=== PATIENT | female | born 2000 | race Caucasian/White ===

== ENCOUNTER 2020-04-23 12:05 | Outpatient (CLI) | payer BC, OTHER, SELFPAY ==
[2020-04-23 13:15] VITALS: BP 133/76; PULSE 79
[2020-04-23 13:40] LABS: Basophils Percent Auto 0.2 % (0.2-1.2); Eosinophils Absolute Auto 0.1 K/mm3 (0-0.3); Eosinophils Percent Auto 1.1 % (0-4.4); Hematocrit 32.3 % (37.0-47.0); Hemoglobin 10.5 g/dL (12.0-15.0); Immature Granulocyte Absolute 0.05 K/mm3 (0.00-0.031); Immature Granulocyte Percent A 0.4 % (0-0.5); Lymphocytes Absolute Auto 2.95 K/mm3 (0.9-3.2); Lymphocytes Percent Auto 25.8 % (18.3-44.2); Mean Corpuscular HGB Conc 32.5 g/dl (32-36); Mean Corpuscular Hemoglobin 25.6 pg (26-34); Mean Corpuscular Volume 78.8 fl (80-100); Monocytes Absolute Auto 0.9 K/mm3 (0.1-0.6); Monocytes Percent Auto 8.1 % (2.6-8.5); Neutrophils Absolute Auto 7.4 K/mm3 (1.3-6.7); Neutrophils Percent Auto 64.4 % (45.5-73.1); Platelet Count Result 321 k/mm3 (150-375); Red Cell Distribution Width 13.5 % (11.5-14.5); White Blood Count 11.4 K/mm3 (4.5-10.0)
[2020-04-23 13:45] LABS: Add Urine Microscopic? YES; Amorphous Sediment Urine Few; Appearance Urine Cloudy (Clear); Bacteria Urine 1+ /hpf; Bilirubin Urine Negative (Negative); Blood Urine Negative (Negative); Color Urine Yellow (Yellow); Glucose Urine UA Negative (Negative); Ketones Urine Negative (Negative); Leukocyte Esterase Ur 1+ LEU/UL (NEGATIVE); Mucus Urine Few /lpf; Nitrate Urine Negative (Negative); Protein Urine 1+ mg/dL (Negative); Specific Grav Ur 1.017 (1.001-1.035); Squamous Epithelial Cell Urine Many /hpf (Few); Transitional Epi Cells Urine Rare /hpf (None Seen); Urobilinogen Urine Negative mg/dL (<2.0)
[2020-04-23 13:49] LABS: Alanine Aminotransferase 10 U/L (4-35); Albumin Level 3.4 g/dL (3.7-5.6); Alkaline Phosphatase 115 U/L (45-116); Aspartate Amino Transferase 18 U/L (14-36); Bilirubin,Total 0.3 mg/dL (0.2-1.3); Blood Urea Nitrogen 7 mg/dL (8-21); Calcium 8.7 mg/dL (8.9-10.7); Carbon Dioxide 22 mmol/L (22-30); Chloride 107 mmol/L (98-107); Estimated Glomerular Filt Rate > 60; Glucose 92 mg/dL (65-105); Potassium 3.8 mmol/L (3.4-5.0); Sodium 133 mmol/L (134-143); Uric Acid 2.9 mg/dL (3.0-5.9)
[2020-04-23 13:50] LABS: Creatinine Urine 113.1 mg/dL; Total Protein Urine Random 10 mg/dL
--- NOTE | 2020-04-23 15:31 | PC.NURSE ---
Upon d/c instructions, reminded about her constant headache for a week...unsure of the dose...is going to go home and check the dosage. I instructed her that she can take up to 2 exta strength tabs every 6 hours and do that for a whole day at least to see if that works. She is also hurting in her hips and back, maternity belt not helping and I suggested a massage (she was going to a chiropractor). HIP sheet given and explained/emphasized what RUQ pain was and the swelling, which she does not have. Pt will call here if the Tylenol does not work, we would call Dr Goins for alterative of flexoril or fioricet.
== END 2020-04-23 15:10 | disposition home or self-care (01) ==
PROVIDERS: PCP Pediatrics; Visit Provider Obstetrics & Gynecology
DX: O13.9 Gestational [pregnancy-induced] hypertension without significant proteinuria, unspecified trimester (principal); R51 Headache; R10.13 Epigastric pain
CPT/HCPCS: 36415; 59025; 80053; 81001; 82570; 84156; 84550; 85025

== ENCOUNTER 2020-05-21 13:10 | Observation (INO) | payer BC, OTHER, SELFPAY ==
--- NOTE | ~2020-05-21 | US_ITS ---
EXAMINATION: US OB BPP wo non-stress DATE: 05/21/2020 14:59 INDICATION: Diabetes, third trimester TECHNIQUE: Real-time pelvic ultrasound was performed. The interpreting radiologist was not present fo r the study. COMPARISON: None. FINDINGS: There is a single living fetus in vertex presentation. The placenta is anterior. heart rate is 157 beats per minute (bpm). Biophysical profile performed by the technologist: breathing (30 sec sustained breathing in 30 minutes): 2 out of 2 movement (3 gross body movements in 30 minutes): 2 out of 2 tone (one episode of jiiqtyo-whrzqnipd-prqghmj limb movement): 2 out of 2 Amniotic fluid pocket (2 cm): 2 out of 2 Total score: 8 out of 8 IMPRESSION: 1. Single living fetus in vertex presentation. 2. Biophysical profile 8 out of 8. Reviewed, dictated and finalized at location A.
[2020-05-21 13:31] VITALS: BP 142/93; PULSE 99
[2020-05-21 13:45] VITALS: BP 129/83; PULSE 75
[2020-05-21 14:00] VITALS: BP 125/80; PULSE 89
[2020-05-21 14:15] VITALS: BP 133/83; PULSE 98
--- NOTE | 2020-06-16 11:56 | PM.OBTRLD ---
OB - Triage/Final Diagnosis Visit Information Date of evaluation: 05/21/20 Final Diagnosis (1) False labor: Code(s): O47.9 - False labor, unspecified Status: Acute
== END 2020-05-21 15:00 | disposition home or self-care (01) ==
PROVIDERS: Admitting Provider Obstetrics & Gynecology; PCP Pediatrics; Visit Provider Obstetrics & Gynecology
DX: O47.1 False labor at or after 37 completed weeks of gestation (principal); Z3A.37 37 weeks gestation of pregnancy
CPT/HCPCS: 76819; G0378; G0379

== ENCOUNTER 2020-05-26 10:30 | Inpatient (IN) | payer BC, OTHER, SELFPAY ==
[2020-05-26] VITALS (51 sets, daily range): BP systolic 123–182; BP diastolic 71–104; PULSE 64–128; RESP 16; TEMP 36.9–37.1; O2SAT 84–100; BMI 31.5
[2020-05-26 12:38] LABS: Basophils Percent Auto 0.3 % (0.2-1.2); Eosinophils Absolute Auto 0.2 K/mm3 (0-0.3); Eosinophils Percent Auto 1.4 % (0-4.4); Hematocrit 34.2 % (37.0-47.0); Hemoglobin 10.9 g/dL (12.0-15.0); Immature Granulocyte Absolute 0.08 K/mm3 (0.00-0.031); Immature Granulocyte Percent A 0.7 % (0-0.5); Lymphocytes Absolute Auto 2.95 K/mm3 (0.9-3.2); Lymphocytes Percent Auto 27.4 % (18.3-44.2); Mean Corpuscular HGB Conc 31.9 g/dl (32-36); Mean Corpuscular Hemoglobin 24.7 pg (26-34); Mean Corpuscular Volume 77.6 fl (80-100); Mean Platelet Volume 12.7 fl (7.4-10.4); Monocytes Absolute Auto 0.7 K/mm3 (0.1-0.6); Monocytes Percent Auto 6.3 % (2.6-8.5); Neutrophils Absolute Auto 6.9 K/mm3 (1.3-6.7); Neutrophils Percent Auto 63.9 % (45.5-73.1); Platelet Count Result 281 k/mm3 (150-375); Red Blood Count 4.41 M/mm3 (4.2-5.4); Red Cell Distribution Width 14.7 % (11.5-14.5); White Blood Count 10.8 K/mm3 (4.5-10.0)
[2020-05-26] MEDS: LACTATED RINGERS 1,000 ML 125 ML IV CONT ×2 (12:43→16:12)
[2020-05-26] MEDS: OXYTOCIN 30 UNITS/NS 500 ML 30 UNITS/500 ML BAG 6 UNITS IV CONT (12:45)
[2020-05-26 12:55] LABS: Alanine Aminotransferase 11 U/L (4-35); Albumin Level 3.5 g/dL (3.7-5.6); Alkaline Phosphatase 148 U/L (45-116); Anion Gap 12.8 mmol/L (7-16); Aspartate Amino Transferase 22 U/L (14-36); Bilirubin,Total 0.4 mg/dL (0.2-1.3); Blood Urea Nitrogen 10 mg/dL (8-21); Calcium 8.7 mg/dL (8.9-10.7); Carbon Dioxide 20 mmol/L (22-30); Chloride 106 mmol/L (98-107); Estimated Glomerular Filt Rate > 60; Glucose 106 mg/dL (65-105); Potassium 3.8 mmol/L (3.4-5.0); Sodium 135 mmol/L (134-143)
--- NOTE | 2020-05-26 13:02 | LDADM ---
This patient, Meena Clinton, was admitted to Labor/Delivery/Recovery 105 on 05/26/20 at 10:30. Plans for labor, pain management and were discussed with patient. Patient/family oriented to hospital policies and general routines including ID bracelet, bed and alarms, visiting hours, pain management, procedures, bathroom and other care routines, personal items, smoking policy, room service/diet and guest tray routines, security routines, and visiting hours. Patient/Family are encouraged to report perceived risks to care and to ask questions if they do not understand what they are told or what they should do. See OBIX for further documentation.
--- NOTE | 2020-05-26 15:27 | P.HPUP_ITS ---
History and Physical Update Update Date/Time: 05/26/20 15:27 This patient is a 19-year-old 1 at 37 weeks gestation who was admitted for induction of labor for gestational hypertension. She has a very favorable cervix. Artificial rupture of membranes was performed. She had clear fluid. Her cervical exam is . We will proceed with high- dose Pitocin. Expectant management will be continued. History and Physical has been reviewed, including an updated exam of the patien t. There are NO changes in the patient's condition. Risks, benefits, and alternatives have been discussed and questions answered. Patient agrees to proceed with procedure.
--- NOTE | 2020-05-26 16:47 | WPDANESEPPF ---
Anes - Initial Pre Proc Eval Procedure: labor epidural Date/Time: 05/26/20 16:47 Surgeon: Amarjit Goins MD Pre Op Diagnosis: labor pain Pre Op Diagnosis: Induction of Labor/INCREASED BP IN OFFICE X2 Patient Data Age: 19 Gender: F Height: 1.65 m Weight: 86 kg Last Vital Signs Temp 36.9 C 05/26/20 15:37 Pulse 79 05/26/20 16:42 BP 147/95 H 05/26/20 16:42 Pulse Ox 100 05/26/20 16:46 Allergies Allergy/AdvReac Type Severity Reaction Status Date / Time No Known Allergies Allergy Verified 05/26/20 15:40 Home Medications Medication Instructions Recorded Confirmed Type PNV cmb#95-ferrous fumarate-FA 1 tablet PO DAILY 05/21/20 05/21/20 History [] sertraline [Zoloft] 100 mg PO DAILY 05/21/20 05/21/20 History Laboratory Tests 05/26/20 05/26/20 05/26/20 11:31 12:09 12:12 WBC 10.8 K/mm3 H K/mm3 (4.5-10.0) RBC 4.41 M/mm3 M/mm3 (4.2-5.4) Hgb 10.9 g/dL L g/dL (12.0-15.0) Hct 34.2 % L % (37.0-47.0) MCV 77.6 fl L fl (80-100) MCH 24.7 pg L pg (26-34) MCHC 31.9 g/dl L g/dl (32-36) RDW 14.7 % H % (11.5-14.5) Plt Count 281 k/mm3 k/mm3 (150-375) MPV 12.7 fl H fl (7.4-10.4) Immature Gran % (Auto) 0.7 % H % (0-0.5) Neut % (Auto) 63.9 % % (45.5-73.1) Lymph % (Auto) 27.4 % % (18.3-44.2) [place] % (Auto) 6.3 % % (2.6-8.5) Eos % (Auto) 1.4 % % (0-4.4) Baso % (Auto) 0.3 % % (0.2-1.2) Lymph # (Auto) 2.95 K/mm3 K/mm3 (0.9-3.2) [place] # (Auto) 0.7 K/mm3 H K/mm3 (0.1-0.6) Eos # (Auto) 0.2 K/mm3 K/mm3 (0-0.3) Baso # (Auto) 0.0 K/mm3 K/mm3 (0.0-0.1) Abs Immat Gran (auto) 0.08 K/mm3 H K/mm3 (0.00-0.031) Absolute Neuts (auto) 6.9 K/mm3 H K/mm3 (1.3-6.7) Absolute Nucleated RBC 0.0 K/mm3 K/mm3 (0.0-0.012) Nucleated RBC % 0.0 % % (0.0-0.2) Sodium 135 mmol/L mmol/L (134-143) Potassium 3.8 mmol/L mmol/L (3.4-5.0) Chloride 106 mmol/L mmol/L (98-107) Carbon Dioxide 20 mmol/L L mmol/L (22-30) Anion Gap 12.8 mmol/L mmol/L (7-16) BUN 10 mg/dL mg/dL (8-21) Creatinine 0.50 mg/dL L mg/dL (0.7-1.0) Estim Creat Clear Calc Not Reportable Estimated GFR > 60 (59 - ) Glucose 106 mg/dL H mg/dL (65-105) Uric Acid Calcium 8.7 mg/dL L mg/dL (8.9-10.7) Total Bilirubin 0.4 mg/dL mg/dL (0.2-1.3) AST 22 U/L U/L (14-36) ALT 11 U/L U/L (4-35) Alkaline Phosphatase 148 U/L H U/L (45-116) Total Protein 7.0 g/dL g/dL (6.3-8.6) Albumin 3.5 g/dL L g/dL (3.7-5.6) RPR Blood Type A Positive Antibody Screen Negative 05/26/20 05/26/20 12:12 12:12 WBC RBC Hgb Hct MCV MCH MCHC RDW Plt Count MPV Immature Gran % (Auto) Neut % (Auto) Lymph % (Auto) [place] % (Auto) Eos % (Auto) Baso % (Auto) Lymph # (Auto) [place] # (Auto) Eos # (Auto) Baso # (Auto) Abs Immat Gran (auto) Absolute Neuts (auto) Absolute Nucleated RBC Nucleated RBC % Sodium Potassium Chloride Carbon Dioxide Anion Gap BUN Creatinine Estim Creat Clear Calc Estimated GFR Glucose Uric Acid 4.0 mg/dL mg/dL (3.0-5.9) Calcium Total Bilirubin AST ALT Alkaline Phosphatase Total Protein Albumin RPR Pending Blood Type Antibody Screen Patient hx anesthesi
--- NOTE | 2020-05-26 17:55 | PM.OBPRVD ---
OB - Delivery Note Procedure Delivery date: 05/26/20 events: Induced HTN Intrapartal events: None Induction method: AROM and per pitocin protocol Delivery monitor: internal FHT and internal uterine Route of delivery: Laceration description: None Narrative: A skin tag on the anus was removed. The base of the skin tag was clamped with a Meri clamp. Then it was suture ligated. The skin tag was transected after the clamp was placed. It was ligated with to 0 Vicryl. There was no blood loss. Baby Date of : 05/26/20 Time of : 17:41 Weeks of gestation at delivery: 37 gender: Male Weight (pounds): 6 Weight (ounces): 2 presentation: vertex position: Left Occiput Anterior Placenta delivery description: Spontaneous cord vessel description: 3 Vessels score one minute: 8 score five minutes: 9
[2020-05-26] MEDS: OXYTOCIN 30 UNITS/NS 500 ML 30 UNITS/500 ML BAG 125 UNITS IV CONT (18:35)
[2020-05-26 18:45] LABS: Rubella IgG Antibody 39.1 IU/ML
[2020-05-26] MEDS: WITCH HAZEL 40 PADS 1 PAD TOPICAL (20:30)
[2020-05-26] MEDS: IBUPROFEN 600 MG TABLET PO (20:30)
[2020-05-26] MEDS: BENZOCAINE 20% AER SPR (*SP) 56 GM CAN 1 SPRAY TOPICAL (20:30)
[2020-05-27] MEDS: IBUPROFEN 600 MG TABLET PO ×3 (04:39→20:00)
[2020-05-27 05:44] LABS: Hematocrit 30.4 % (37.0-47.0); Hemoglobin 9.7 g/dL (12.0-15.0)
[2020-05-27 07:30] LABS: Rapid Plasma Reagin Non-Reactive (NonReactive)
--- NOTE | 2020-05-27 07:42 | PM.OBPNVD ---
OB - PN: Subj Subjective Date/time seen: 05/27/20 07:42 Patient comments: no complaints, pain well controlled and other (Lochia similar to menses) baby status: doing well OB - PN: Obj Data Labs CBC & Chem 7: 05/27/20 04:44 05/26/20 12:09 Labs: Laboratory Results - last 24 hr 05/26/20 05/26/20 05/26/20 11:31 12:09 12:11 WBC RBC Hgb Hct MCV MCH MCHC RDW Plt Count MPV Immature Gran % (Auto) Neut % (Auto) Lymph % (Auto) [place] % (Auto) Eos % (Auto) Baso % (Auto) Lymph # (Auto) [place] # (Auto) Eos # (Auto) Baso # (Auto) Abs Immat Gran (auto) Absolute Neuts (auto) Absolute Nucleated RBC Nucleated RBC % Sodium 135 Potassium 3.8 Chloride 106 Carbon Dioxide 20 L Anion Gap 12.8 BUN 10 Creatinine 0.50 L Estim Creat Clear Calc Not Reportable Estimated GFR > 60 Glucose 106 H Uric Acid Calcium 8.7 L Total Bilirubin 0.4 AST 22 ALT 11 Alkaline Phosphatase 148 H Total Protein 7.0 Albumin 3.5 L RPR Rubella IgG Antibody 39.1 Blood Type A Positive Antibody Screen Negative 05/26/20 05/26/20 05/26/20 12:12 12:12 12:12 WBC 10.8 H RBC 4.41 Hgb 10.9 L Hct 34.2 L MCV 77.6 L MCH 24.7 L MCHC 31.9 L RDW 14.7 H Plt Count 281 MPV 12.7 H Immature Gran % (Auto) 0.7 H Neut % (Auto) 63.9 Lymph % (Auto) 27.4 [place] % (Auto) 6.3 Eos % (Auto) 1.4 Baso % (Auto) 0.3 Lymph # (Auto) 2.95 [place] # (Auto) 0.7 H Eos # (Auto) 0.2 Baso # (Auto) 0.0 Abs Immat Gran (auto) 0.08 H Absolute Neuts (auto) 6.9 H Absolute Nucleated RBC 0.0 Nucleated RBC % 0.0 Sodium Potassium Chloride Carbon Dioxide Anion Gap BUN Creatinine Estim Creat Clear Calc Estimated GFR Glucose Uric Acid 4.0 Calcium Total Bilirubin AST ALT Alkaline Phosphatase Total Protein Albumin RPR Non-reactive Rubella IgG Antibody Blood Type Antibody Screen 05/27/20 04:44 WBC RBC Hgb 9.7 L Hct 30.4 L MCV MCH MCHC RDW Plt Count MPV Immature Gran % (Auto) Neut % (Auto) Lymph % (Auto) [place] % (Auto) Eos % (Auto) Baso % (Auto) Lymph # (Auto) [place] # (Auto) Eos # (Auto) Baso # (Auto) Abs Immat Gran (auto) Absolute Neuts (auto) Absolute Nucleated RBC Nucleated RBC % Sodium Potassium Chloride Carbon Dioxide Anion Gap BUN Creatinine Estim Creat Clear Calc Estimated GFR Glucose Uric Acid Calcium Total Bilirubin AST ALT Alkaline Phosphatase Total Protein Albumin RPR Rubella IgG Antibody Blood Type Antibody Screen OB - PN A/P Plan day: 1 (s/p vaginal delivery, doing well) Plan: routine care and discharge home (Follow up in 4 weeks) Time Spent With Patient Time: Total time spent is greater than 50% in coordination of care (as documented) at patient's floor/unit and/or counseling patient: Exam Const: General: no acute distress GI: Inspection: other (Fundus firm and nontender at umbilicus) GI Palp: Yes Soft to palpation and No Tenderness to palpation present (GI) Extrem: General: no edema
[2020-05-27 08:05] VITALS: BP 130/90; PULSE 70; RESP 18; TEMP 36.4; O2SAT 99
[2020-05-27] MEDS: DOCUSATE SODIUM 100 MG CAPSULE PO ×2 (08:46→17:35)
[2020-05-27] MEDS: POLYSACCHARIDE IRON COMPLEX 150 MG CAPSULE PO ×2 (08:46→17:35)
[2020-05-27] MEDS: MULTIVIT/MIN/PREN/FOL AC/IRON TABLET 1 TAB PO (08:46)
--- NOTE | 2020-05-27 09:51 | WPDANLDPN2 ---
Anes-Prog Note L&D Date/Time: 05/27/20 09:51 Comfortable throughout: labor and delivery Neuraxial method: epidural Epidural/Spinal procedure site: clean & non-tender Neuro status: Neuro function grossly intact. Cardiovascular status: normal Respiratory status: normal Airway patency: baseline Mental status: baseline Post-Op hydration status: normal Vital Signs: Last Vital Signs Temp 36.4 C 05/27/20 08:05 Pulse 70 05/27/20 08:05 Resp 18 05/27/20 08:05 BP 130/90 05/27/20 08:05 Pulse Ox 99 05/27/20 08:05 I/O: Intake & Output 05/26/20 05/27/20 05/27/20 23:59 07:59 15:59 Intake Total 2500 Output Total 388 Balance 2112 Post-procedural complaints: none Patient feedback: Patient satisfied with anesthetic care.
--- NOTE | 2020-05-27 11:55 | PC.NURSE ---
Mother called out for assist with feeding. Mother reports infant has been sleepy and not latching. Mother is allowing infant to sleepy for 4 hours before waking to feed. Reviewed infant feeding cues, frequencies, duration of feedings, feeding elimination flow sheet, and signs of adequate intake. Demonstrated stimulation techniques to wake infant for feeding. Assisted with infant to breast. Reviewed positioning/alignment in cross cradle, holding breast in U hold and guided asymmetrical latch on. was able to latch correctly. held nipple in and made no effort to suckle. Infant would fall asleep and then release latch. Attempt for 15 minutes, mother reports this is how has nursed the times she has reported. Mother has listed the time at breast not the time actually nursing. Discussed the early 37 week infant, with possible difficulties with latch, less stamina and organization of suck swallow to transfer adequate milk. Reviewed infant will develop within a few days with increased organization and strength. Discussed the difference between effective and ineffective feeding. At this time infant is not latching and maintaining suckling for effective feeding. Reviewed feeding options at this time. Mother will initiate pumping to stimulate milk supply and offer EBM as part of supplementation. Mother will nipple 15-20 mls of formula/EBM at this time. Nipple care reviewed. Instructed mother to call out for RN assistance if she is unable to latch infant for feeding or she has discomfort with nursing. Instructed feeding should be initiated three hours from start of last feeding or if feeding cues are noted before. Mother voiced understanding of information shared.
--- NOTE | 2020-05-27 14:55 | PC.NURSE ---
Mother called out for assist with feeding. Assisted with to breast. Reviewed positioning/alignment, holding breast and asymmetrical latch on. Infant was sleepy and made no effort this feeding to latch. Attempt for 10 minutes. Mother will supplement after attempt. Feeding plan is to attempt to breast each feeding, if does not nurse effectively. Mother will supplement 15-20 mls and then pump. Advised to supplement until is able to maintain effective nursing for at least 15 minutes and is maintaining required output.
--- NOTE | 2020-05-27 15:15 | PC.NURSE ---
Mother wished to use her own Medela double electric pump. Instructions given on breast pump care and usage, pumping schedule, nipple care, and collection and storage of breast milk. Encouraged [id number], breast massage and manual expression to stimulate supply. Assessed patient for correct flange size, placement and draw. Patient verbalizes and demonstrates understanding of instructions.
[2020-05-27 20:00] VITALS: BP 134/95; PULSE 63; RESP 16; TEMP 36.7; O2SAT 100
[2020-05-27] MEDS: TETANUS,DIPHTHERIA,AC PERTUSSIS ADULT (0.5 ML) BOOSTRIX IM (20:01)
[2020-05-28] MEDS: IBUPROFEN 600 MG TABLET PO (04:38)
--- NOTE | 2020-05-28 07:39 | PM.OBPNVD ---
OB - PN: Subj Subjective Date/time seen: 05/28/20 07:39 Patient comments: no complaints baby status: doing well [place] feeding status: breast and bottle feeding OB - PN: Obj Data Labs CBC & Chem 7: 05/27/20 04:44 05/26/20 12:09 OB - PN A/P Plan day: 2 Plan: discharge home Comments: check labs prior to d/c Time Spent With Patient Time: Total time spent is greater than 50% in coordination of care (as documented) at patient's floor/unit and/or counseling patient: Exam Const: General: comfortable Psych: Appearance: grossly normal Affect: normal affect Attitude: cooperative Judgement: Good judgement present (Psych)
[2020-05-28] MEDS: POLYSACCHARIDE IRON COMPLEX 150 MG CAPSULE PO (08:12)
[2020-05-28] MEDS: DOCUSATE SODIUM 100 MG CAPSULE PO (08:12)
[2020-05-28] MEDS: MULTIVIT/MIN/PREN/FOL AC/IRON TABLET 1 TAB PO (08:12)
[2020-05-28 08:16] LABS: Hematocrit 27.8 % (37.0-47.0); Hemoglobin 8.8 g/dL (12.0-15.0); Mean Corpuscular HGB Conc 31.7 g/dl (32-36); Mean Corpuscular Hemoglobin 24.6 pg (26-34); Mean Corpuscular Volume 77.7 fl (80-100); Mean Platelet Volume 12.1 fl (7.4-10.4); Platelet Count Result 248 k/mm3 (150-375); Red Blood Count 3.58 M/mm3 (4.2-5.4); Red Cell Distribution Width 14.8 % (11.5-14.5); White Blood Count 14.5 K/mm3 (4.5-10.0)
[2020-05-28 08:34] LABS: Alanine Aminotransferase 9 U/L (4-35); Albumin Level 3.1 g/dL (3.7-5.6); Alkaline Phosphatase 120 U/L (45-116); Anion Gap 8.1 mmol/L (7-16); Aspartate Amino Transferase 22 U/L (14-36); Bilirubin,Total 0.5 mg/dL (0.2-1.3); Blood Urea Nitrogen 5 mg/dL (8-21); Calcium 8.4 mg/dL (8.9-10.7); Carbon Dioxide 26 mmol/L (22-30); Chloride 104 mmol/L (98-107); Estimated CRCL calculation 163 ml/min; Estimated Glomerular Filt Rate > 60; Glucose 73 mg/dL (65-105); Potassium 4.1 mmol/L (3.4-5.0); Sodium 134 mmol/L (134-143); Uric Acid 3.3 mg/dL (3.0-5.9)
[2020-05-28 08:40] VITALS: BP 118/74; PULSE 70; RESP 18; TEMP 36.9
--- NOTE | 2020-05-28 09:10 | PC.NURSE ---
Mother is able to independently latch infant with appropriate positioning/alignment using nipple shield. is more awake and eagerly suckling at breast. She denies any nipple discomfort, is feeding as required and waking to feed if needed. requires supplementation after all feeding attempts in the past 24 hours, and is currently meeting outcomes for weight, output, jaundice and feeding frequencies. Mother continues to pump after each feeding attempt and will offer EBM as available. Mother states she feels confident to continue current feeding plan at home. Discussed when to increase supplement and signs when may be ready to discontinue supplementation. Advised to continue with supplementation until seen by ICP or LC. Reviewed transition to breast milk, signs of adequate intake, and engorgement/relief. Instructed to call ICP if intake/output less than required. Reviewed regular medications mother is taking. Information provided per Marlen. Reviewed community resources on the [facility] website and in the Mom/Baby guide. Information on outpatient services provided. Mother has no further questions at this time.
--- NOTE | 2020-05-28 10:47 | PC.NURSE ---
Ollie Bowens CNM notified of lab results and blood pressure, patient may be discharged to home. No new orders received at this time
[2020-05-29 07:57] VITALS: BP 137/91; PULSE 83; RESP 16; TEMP 37; O2SAT 99
--- NOTE | 2020-05-30 09:26 | PM.OBDSVD ---
OB - DS: Summary OB Procedures : None OB Procedures Intrapartum: Spontaneous Vag Delivery OB Procedures: : None Time Spent with Patient Time attestation: Total time spent providing and/or coordinating discharge services: DS: Data Data Completed and Pending Completed studies during hospitalization: Pending at discharge 05/26/20 17:50 Surgical [PTH] Routine Discharge Plan Discharge Attending physician on discharge: Amarjit Goins Consulting providers: Clementine Bowens ; Nancy Logan Discharging Clinician: Clementine Bowens Patient Disposition: Home, Self-Care Activity: pelvic rest Diet: regular Discharge Instructions: Education: Mom and Baby Guide Given to: Mother Follow-Up: Call your delivering provider's office for an appointment to be seen in: 4 Weeks Mom and baby should come to the [facility] for the follow-up appointment. Appointment Date/Time: May 29, 2020 at 8:00 am What to expect at your follow-up visit: Blood Pressure Check Physical Assessment Call [phone] if you are unable to keep your appointment time. BREAST CARE: * Wear a snug supportive bra. * For engorgement discomfort: Breast Feeding: * Apply warm moist washcloths * Express milk as needed to relieve engorgement * Wear loose clothing Bottle Feeding: * May apply ice packs * For sore nipples: * Identify correct latch-on * Apply warm moist washcloths before and after nursing * Air dry nipples after nursing * May apply Lansinoh cream to nipples EPISIOTOMY/PERINEAL CARE: * Until bleeding stops, use your ilya bottle after urinating * Change your pad frequently throughout the day * You may take sitz baths several times a day (fill your bathtub with warm water and soak for 20 minutes.) Do NOT bathe in the water * No tub baths until seen by your physician - You may shower ACTIVITY: * Rest as much as possible. * Do not exercise or lift anything heavier than your baby (such as laundry or other children.) * Avoid stairs or driving as much as possible. * Do not put anything into the vagina. No douching, tampons, or sexual activity until seen by physician. NOTIFY PHYSICIAN IF YOU HAVE ANY QUESTIONS OR IF ANY OF THE FOLLOWING SYMPTOMS OCCUR: * If your episiotomy or incision becomes red, swollen, or more painful than what you have experienced in the hospital. * If your vaginal bleeding becomes foul smelling. * If your vaginal bleeding becomes more heavy than a period or if your bleeding changes from pink to bright red. However, you may pass an occasional walnut-sized clot once or twice for the first week . * If you experience a sharp, shooting pain in you calves. * If you discover a hard, reddened area on your breast or if you experience flu-like symptoms. DIET: * Eat regular, well-balanced meals. * Drink plenty of fluids daily. If , drink to thirst. Stand Alone Forms: General Discharge Information Follow-up/Referrals: Amarjit Goins MD [Physician] - 4 Weeks Discharge Medications: New ibuprofen 600 mg Tablet 600 mg PO Q6H PRN (Reason: Cramping) Qty: 60 RF: 0 Continued sertraline [Zoloft] 100 mg Tablet 100 mg PO DAILY RF: 0 PNV cmb#95-ferrous fumarate-FA [] 28 mg iron- 800 mcg Tablet 1 tablet PO DAILY RF: 0 Date of admission: 05/26/20 10:30 Primary Care Provider: Eden Medellin Admitting Provider: Amarjit Goins Discharge Date/Time: 05/28/20 11:59 Attending physician on admission: Amarjit Goins
== END 2020-05-28 11:59 | disposition home or self-care (01) | DRG 807 ==
LOC: ANHLDR 11:39 → ANHOB2 21:38
PROVIDERS: Advanced Practice Midwife; Admitting Provider Obstetrics & Gynecology; PCP Pediatrics; Visit Provider Obstetrics & Gynecology
DX: O13.4 Gestational [pregnancy-induced] hypertension without significant proteinuria, complicating childbirth (principal); Z37.0 Single live birth; Z3A.37 37 weeks gestation of pregnancy; O70.1 Second degree perineal laceration during delivery; O69.2XX0 Labor and delivery complicated by other cord entanglement, with compression, not applicable or unspecified; O99.72 Diseases of the skin and subcutaneous tissue complicating childbirth; L91.8 Other hypertrophic disorders of the skin
CPT/HCPCS: 36415; 80053; 84550; 85014; 85018; 85025; 85027; 86592; 86762; 86850; 86900; 86901; 88304; 88305; 90715; A9270; J2590; J2795; J7120

== ENCOUNTER 2021-04-11 10:44 | Emergency (ER) | payer BC, OTHER, SELFPAY ==
--- NOTE | ~2021-04-11 | XR_ITS ---
EXAMINATION: XR knee LT 3V DATE: 04/11/2021 12:10 INDICATION: Twisting injury with left knee pain under the patella. TECHNIQUE: Anteroposterior, oblique and crosstable lateral views of the left knee were obtained COMPARISON: None. FINDINGS: Alignment is normal. No fracture. Joint spaces appear normal on nonweightbearing imaging. Small left knee joint effusion without layering lipohemarthrosis. Soft tissues are otherwise unremarkable. IMPRESSION: 1. Small left knee joint effusion. No osseous abnormality. Reviewed, dictated and finalized at location A.
[2021-04-11 10:49] VITALS: BP 133/83; PULSE 95; RESP 18; TEMP 37.3; O2SAT 99
[2021-04-11 12:46] VITALS: BP 124/74; PULSE 78; RESP 17; O2SAT 100
--- NOTE | 2021-04-11 12:46 | ED.GENADULT ---
HPI - General Adult General Chief complaint: Extremity Injury, Lower Stated complaint: L KNEE INJURY X1WK Time Seen by Provider: 04/11/21 10:45 Source: patient, family and RN notes reviewed Mode of arrival: ambulatory Limitations: no limitations History of Present Illness HPI narrative: Patient is a 20-year-old female who presents with left knee pain that began 1 week ago was lifting something and felt a pop has since had anterior left knee pain that has been persistent has been ambulating walking on it for the last week patient notes aching pain anteriorly that became worse today denies other injuries or complaints Related Data Home Medications Medication Instructions Recorded Confirmed PNV cmb#95-ferrous fumarate-FA 1 tablet PO DAILY 05/21/20 05/21/20 [] sertraline [Zoloft] 100 mg PO DAILY 05/21/20 05/21/20 Allergies Allergy/AdvReac Type Severity Reaction Status Date / Time No Known Allergies Allergy Verified 04/11/21 10:53 Review of Systems Review of Systems: All systems reviewed & are unremarkable except as noted in HPI and below PMFSH Past Medical History Medical History Depression Family History Family History Other Diabetes mellitus Family history of alcoholism Family history of lung disease Family history of mental disorder Family history of seizure disorder Social History Social History Smoking status: Never smoker Gender identity (if verbalized by the patient): Female Spiritual care concerns: No Exam Narrative: Exam Narrative: GENERAL: Well-appearing, well-nourished, and in no acute distress. HEAD: Normocephalic, atraumatic. EYES: PERRLA and EOMI. ENT: Nares clear, no rhinorrhea or epistaxis. Mucous membranes moist. CHEST: Clear to auscultation. No respiratory distress. No wheezes rales or rhonchi HEART: Regular rate and rhythm. No murmur heard. Normal peripheral pulses. EXTREMITIES: Tenderness of the anterior left knee no deformities noted SKIN: Warm, dry, no rash. NEURO: No focal deficits. Alert and oriented x3. Neurovascularly intact. Capillary refill less than 2 seconds PSYCH: Normal mood and affect. Course Course Emergency Course: Patient in the room in no distress aware of case findings treatment plan and diagnosis provided with orthopedic follow-up placed in Simeon wrap knee immobilizer and crutches Vital Signs Vital signs: Vital Signs Temperature 99.2 F 04/11/21 10:49 Pulse Rate 95 04/11/21 10:49 Respiratory Rate 18 04/11/21 10:49 Blood Pressure 133/83 04/11/21 10:49 Pulse Oximetry 99 04/11/21 10:49 Temperature 99.2 F 04/11/21 10:49 Pulse Rate 78 04/11/21 12:46 Respiratory Rate 17 04/11/21 12:46 Blood Pressure 124/74 04/11/21 12:46 Pulse Oximetry 100 04/11/21 12:46 Medical Decision Making MDM Narrative Medical decision making narrative: Patients injury or pain is consistent with musculoskeletal etiology. No signs of neurological or vascular compromise on exam. Compartments and tisues are soft without signs of compartment syndrome. Pain is felt appropriate for further evaluation on an outpatient basis. Vital Signs Vital Signs: Vital Signs Temperature 99.2 F 04/11/21 10:49 Pulse Rate 95 04/11/21 10:49 Respiratory Rate 18 04/11/21 10:49 Blood Pressure 133/83 04/11/21 10:49 Pulse Oximetry 99 04/11/21 10:49 Temperature 99.2 F 04/11/21 10:49 Pulse Rate 78 04/11/21 12:46 Respiratory Rate 17 04/11/21 12:46 Blood Pressure 124/74 04/11/21 12:46 Pulse Oximetry 100 04/11/21 12:46 Imaging Data Radiologist's impression: ITS Impressions Knee X-Ray 04/11/21 12:13 IMPRESSION: 1. Small left knee joint effusion. No osseous abnormality. Discharge Plan Discharge Clinical Impression: Acute internal d
== END 2021-04-11 13:18 | disposition home or self-care (01) ==
PROVIDERS: Emergency Provider Emergency Medicine; PCP Pediatrics
DX: M23.92 Unspecified internal derangement of left knee (principal); F32.9 Major depressive disorder, single episode, unspecified
CPT/HCPCS: 73562; 99283

== ENCOUNTER 2023-09-11 15:37 | Emergency (ER) | payer OTHER, SELFPAY ==
--- NOTE | ~2023-09-11 | US_ITS ---
US OB follow up DATE: 09/11/2023 16:37 INDICATION: Abdominal cramping. Headache. TECHNIQUE: Real-time imaging and Doppler analysis COMPARISON: None FINDINGS: Live mcintyre intrauterine gestation, fetus in variable position during the examination, w ith heart rate 155 bpm. Anterior placenta Subjectively normal amount of amniotic fluid. Amniotic fluid index measures 9.8 cm. 5th percentile AF I is 8.3 cm; 95th percentile YANELI is 19.4 cm. Biparietal diameter 3.87 cm; 17 weeks 5 days Head circumference 14.39 cm; 17 weeks 4 days Abdominal circumference 11.72 cm; 17 weeks 3 days Femur length 2.59 cm; 17 weeks 6 days Composite age by Hadlock formula based upon the current measurements would be 17 weeks 5 days +/- 1 w [place] 2 days with PALLAVI of 02/14/2024 compared to 02/15/2024 by LMP. Estimated weight is 203.9 +/- 30.6 g Estimated weight GP: 49.7% Head circumference/abdominal circumference 1.23, within normal range of 1.08-1.28. IMPRESSION: Live mcintyre intrauterine gestation Reviewed, dictated and finalized at [facility]. Reviewed, dictated and finalized at location [facility]. ERSHIP ADVISOR
[2023-09-11 15:38] VITALS: BP 136/79; PULSE 130; RESP 19; TEMP 36.4; O2SAT 100
[2023-09-11 16:01] LABS: Basophils Percent Auto 0.3 % (0.2-1.2); Eosinophils Absolute Auto 0.2 K/mm3 (0-0.3); Eosinophils Percent Auto 1.7 % (0-4.4); Hematocrit 37.1 % (37.0-47.0); Hemoglobin 12.4 g/dL (12.0-15.0); Immature Granulocyte Absolute 0.06 K/mm3 (0.00-0.031); Immature Granulocyte Percent A 0.6 % (0-0.5); Lymphocytes Absolute Auto 2.72 K/mm3 (0.9-3.2); Lymphocytes Percent Auto 25.8 % (18.3-44.2); Mean Corpuscular HGB Conc 33.4 g/dl (32-36); Mean Corpuscular Hemoglobin 28.8 pg (26-34); Mean Corpuscular Volume 86.3 fl (80-100); Mean Platelet Volume 10.2 fl (7.4-10.4); Monocytes Absolute Auto 0.5 K/mm3 (0.1-0.6); Monocytes Percent Auto 4.8 % (2.6-8.5); Neutrophils Absolute Auto 7.1 K/mm3 (1.3-6.7); Neutrophils Percent Auto 66.8 % (45.5-73.1); Platelet Count Result 328 k/mm3 (150-375); Red Cell Distribution Width 13.4 % (11.5-14.5); White Blood Count 10.6 K/mm3 (4.5-10.0)
[2023-09-11 16:06] LABS: Alanine Aminotransferase 17 U/L (6-35); Alkaline Phosphatase 60 U/L (38-126); Anion Gap 10 mmol/L (8-16); Aspartate Amino Transferase 22 U/L (14-36); Bilirubin,Total 0.7 mg/dL (0.2-1.3); Blood Urea Nitrogen 3 mg/dL (7-17); Calcium 9.1 mg/dL (8.4-10.2); Carbon Dioxide 24 mmol/L (22-30); Chloride 104 mmol/L (98-107); Estimated CRCL calculation 201 ml/min; Estimated Glomerular Filt Rate > 60; Glucose 129 mg/dL (65-110); Lipase 51 U/L (23-300); Potassium 3.6 mmol/L (3.4-5.0); Sodium 138 mmol/L (137-145)
--- NOTE | 2023-09-11 17:25 | ED.GENADULT ---
HPI - General Adult General Chief complaint: Abdominal Pain Stated complaint: 17 weeks preg, abd pain, h/a History of Present Illness HPI narrative: Meena Barth is a 22y/o female and is about 17 weeks , she was diagnosed with hypertension related to on 08/28 which she takes baby ASA daily. Today she started to have lower abdominal cramping she went to her OB and was encouraged to come to the ED, her OB Dr. Horton's team is concerned that it could be contractions. Patient states that she is having abdominal cramping about every 3 hours, cramps last about 5-10 minutes. Denies any vaginal bleeding/ reports increased vaginal discharge. Reports feeling nausea but has not had any vomiting. Related Data Home Medications Medication Instructions Recorded Confirmed etonogestrel 68 mg subdermal 1 implant subdermal ONCE 07/26/21 07/18/22 implant (Nexplanon) vortioxetine 5 mg tablet 5 mg PO DAILY 07/18/22 07/18/22 (Trintellix) Allergies Allergy/AdvReac Type Severity Reaction Status Date / Time No Known Allergies Allergy Verified 09/12/23 10:45 [facility] Past Medical History Medical History Depression Depression with anxiety Surgical History Surgical History History of tonsillectomy Family History Family History Other Diabetes mellitus Family history of alcoholism Family history of lung disease Family history of mental disorder Family history of seizure disorder Social History Social History (Updated 07/18/22 @ 13:31 by Maribell Lino) Social History: Smoking status: Never smoker Second hand tobacco smoke exposure: No Alcohol intake: never Substance use: never Substance use type: does not use Living arrangements: with family Occupation/Education: occupation Gender identity (if verbalized by the patient): Female Sexual Orientation (if Verbalized by the Patient): Straight or Heterosexual Spiritual care concerns: No Course Vital Signs Vital signs: Vital Signs Temperature 36.4 C L 09/11/23 15:38 Pulse Rate 130 H 09/11/23 15:38 Respiratory Rate 19 09/11/23 15:38 Blood Pressure 136/79 09/11/23 15:38 Pulse Oximetry 100 09/11/23 15:38 Oxygen Delivery Room Air 09/11/23 15:38 Temperature 36.4 C L 09/11/23 15:38 Pulse Rate 130 H 09/11/23 15:38 Respiratory Rate 19 09/11/23 15:38 Blood Pressure 136/79 09/11/23 15:38 Pulse Oximetry 100 09/11/23 15:38 Oxygen Delivery Room Air 09/11/23 15:38 Medical Decision Making Vital Signs Vital Signs: Vital Signs Temperature 36.4 C L 09/11/23 15:38 Pulse Rate 130 H 09/11/23 15:38 Respiratory Rate 19 09/11/23 15:38 Blood Pressure 136/79 09/11/23 15:38 Pulse Oximetry 100 09/11/23 15:38 Oxygen Delivery Room Air 09/11/23 15:38 Temperature 36.4 C L 09/11/23 15:38 Pulse Rate 130 H 09/11/23 15:38 Respiratory Rate 19 09/11/23 15:38 Blood Pressure 136/79 09/11/23 15:38 Pulse Oximetry 100 09/11/23 15:38 Oxygen Delivery Room Air 09/11/23 15:38 Lab Data 09/11/23 15:49 09/11/23 15:49 Labs: Lab Results 09/11/23 09/11/23 Range/Units 15:49 18:38 WBC 10.6 H (4.5-10.0) K/mm3 RBC 4.30 (4.2-5.4) M/mm3 Hgb 12.4 D (12.0-15.0) g/dL Hct 37.1 (37.0-47.0) % MCV 86.3 (80-100) fl MCH 28.8 (26-34) pg MCHC 33.4 (32-36) g/dl RDW 13.4 (11.5-14.5) % Plt Count 328 (150-375) k/mm3 MPV 10.2 (7.4-10.4) fl Immature Gran % (Auto) 0.6 H (0-0.5) % Neut % (Auto) 66.8 (45.5-73.1) % Lymph % (Auto) 25.8 (18.3-44.2) % [place] % (Auto) 4.8 (2.6-8.5) % Eos % (Auto) 1.7 (0-4.4) % Baso % (Auto) 0.3 (0.2-1.2) % Lymph # (Auto) 2.72 (0.9-3.2) K/mm3 [facility] # (Auto) 0.5 (0.1-0.6) K/mm3 Eos # (Auto) 0.2 (0
[2023-09-11 18:56] LABS: Appearance Urine Cloudy (Clear); Bacteria Urine 3+ /hpf; Bilirubin Urine Negative (Negative); Blood Urine Trace (Negative); Color Urine Yellow (Yellow); Glucose Urine UA Negative (Negative); Ketones Urine Trace mg/dL (Negative); Leukocyte Esterase Ur 1+ LEU/UL (Negative); Nitrate Urine Positive (Negative); Protein Urine Negative (Negative); RBC Urine 0-2 /hpf (0-2); Specific Grav Ur 1.016 (1.001-1.035); Squamous Epithelial Cell Urine Few /hpf (Few); pH Urine 5.5 (5.0-9.0)
[2023-09-11 19:00] LABS: Add Urine Microscopic? YES
== END 2023-09-11 20:56 | disposition left against medical advice (07) ==
PROVIDERS: Emergency Medicine; Emergency Provider Nurse Practitioner Family; PCP Family Medicine
DX: O26.892 Other specified pregnancy related conditions, second trimester (principal); R10.9 Unspecified abdominal pain; Z3A.17 17 weeks gestation of pregnancy
CPT/HCPCS: 36415; 76816; 80053; 81001; 83690; 85025; 87077; 87086; 87186; 99199; 99284

== ENCOUNTER 2023-09-12 10:33 | Emergency (ER) | payer OTHER, SELFPAY ==
--- NOTE | ~2023-09-12 | US_ITS ---
Limited Abdominal Sonogram: Real-time sonographic imaging of the right upper quadrant was performed. Clinical History: Abdominal pain Findings: The liver appears normal with no evidence of mass lesion or bile duct dilatation. Main por luis vein demonstrates normal direction of flow. The gallbladder is well distended, and appears normal with no evidence of gallstone or wall thickening. The common bile duct measures 3 mm. The visualize d pancreas, aorta, and IVC are unremarkable. Impression: No significant abnormality seen. Reviewed, dictated and finalized at location . 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
[2023-09-12 10:41] VITALS: BP 120/75; PULSE 99; RESP 20; TEMP 36.4; O2SAT 99
--- NOTE | 2023-09-12 11:28 | PC.NURSE ---
Pt to u/s via w/c at this time
[2023-09-12 12:01] LABS: Basophils Percent Auto 0.3 % (0.2-1.2); Eosinophils Absolute Auto 0.2 K/mm3 (0-0.3); Eosinophils Percent Auto 1.7 % (0-4.4); Hematocrit 36.1 % (37.0-47.0); Hemoglobin 12.1 g/dL (12.0-15.0); Immature Granulocyte Absolute 0.04 K/mm3 (0.00-0.031); Immature Granulocyte Percent A 0.4 % (0-0.5); Lymphocytes Absolute Auto 2.08 K/mm3 (0.9-3.2); Lymphocytes Percent Auto 22.5 % (18.3-44.2); Mean Corpuscular HGB Conc 33.5 g/dl (32-36); Mean Corpuscular Hemoglobin 28.9 pg (26-34); Mean Corpuscular Volume 86.2 fl (80-100); Mean Platelet Volume 10.1 fl (7.4-10.4); Monocytes Absolute Auto 0.6 K/mm3 (0.1-0.6); Monocytes Percent Auto 6.5 % (2.6-8.5); Neutrophils Absolute Auto 6.3 K/mm3 (1.3-6.7); Neutrophils Percent Auto 68.6 % (45.5-73.1); Platelet Count Result 278 k/mm3 (150-375); Red Blood Count 4.19 M/mm3 (4.2-5.4); Red Cell Distribution Width 13.5 % (11.5-14.5); White Blood Count 9.2 K/mm3 (4.5-10.0)
--- NOTE | 2023-09-12 12:01 | ED.ABDPAIN ---
HPI - Abdominal Pain General Chief Complaint: Abdominal Pain Stated Complaint: abd pain, cramping, 17wks Time Seen by Provider: 09/12/23 10:54 History of Present Illness HPI narrative: Patient is a 20-year-old female who is 17 weeks in gestation who presents ER with multiple complaints. First complaint is aching epigastric pain. Ongoing Ross couple days. No improvement with antiemetics. She reports she has had decreased movement but still felt the baby move today just not yesterday. She has had no urinary frequency urgency or dysuria. She receives her OB care at [facility]. She also reports tightness her neck causing posterior throbbing headache. Related Data Home Medications Medication Instructions Recorded Confirmed etonogestrel 68 mg subdermal 1 implant subdermal ONCE 07/26/21 07/18/22 implant (Nexplanon) vortioxetine 5 mg tablet 5 mg PO DAILY 07/18/22 07/18/22 (Trintellix) Allergies Allergy/AdvReac Type Severity Reaction Status Date / Time No Known Allergies Allergy Verified 09/12/23 10:45 Review of Systems Review of Systems: All systems reviewed & are unremarkable except as noted in HPI and below Constitutional: Constitutional: Denies chills, Denies fatigue and Denies fever(s) ENT: Denies nasal congestion and Denies sore throat Cardiovascular: Cardiovascular: Denies chest pain, Denies rapid heart rate and Denies radiating jaw, neck or arm pain Gastrointestinal: Gastrointestinal: Reports abdominal pain, Denies heartburn, Denies nausea and Denies vomiting Genitourinary: Genitourinary: Denies abnormal vaginal bleeding, Denies nocturia, Denies dysuria and Denies pelvic pain [facility] Past Medical History Medical History Depression Depression with anxiety Surgical History Surgical History History of tonsillectomy Family History Family History Other Diabetes mellitus Family history of alcoholism Family history of lung disease Family history of mental disorder Family history of seizure disorder Social History Social History (Updated 07/18/22 @ 13:31 by Maribell Lino) Social History: Smoking status: Never smoker Second hand tobacco smoke exposure: No Alcohol intake: never Substance use: never Substance use type: does not use Living arrangements: with family Occupation/Education: occupation Gender identity (if verbalized by the patient): Female Sexual Orientation (if Verbalized by the Patient): Straight or Heterosexual Spiritual care concerns: No Exam Narrative: GENERAL: Well-appearing, well-nourished, and in no acute distress. HEAD: Normocephalic, atraumatic. ENT: Mucous membranes moist. NECK: Supple. CHEST: Clear to auscultation. No respiratory distress. HEART: Regular rate and rhythm. Normal peripheral pulses. ABDOMEN: Soft, nontender, nondistended. Uterus palpated just below the umbilicus. EXTREMITIES: Normal range of motion. No edema. SKIN: Warm, dry, no rash. NEURO: Alert and oriented x3. PSYCH: Normal mood and affect. Course Vital Signs Vital signs: Vital Signs Temperature 97.6 F 09/12/23 10:41 Pulse Rate 99 09/12/23 10:41 Respiratory Rate 20 09/12/23 10:41 Blood Pressure 120/75 09/12/23 10:41 Pulse Oximetry 99 09/12/23 10:41 Oxygen Delivery Room Air 09/12/23 10:41 Temperature 97.6 F 09/12/23 10:41 Pulse Rate 72 09/12/23 14:47 Respiratory Rate 15 09/12/23 14:47 Blood Pressure 133/81 09/12/23 14:47 Pulse Oximetry 100 09/12/23 14:47 Oxygen Delivery Room Air 09/12/23 10:41 MDM - Abdominal Pain Lab Data 09/12/23 11:55 09/12/23 11:55 Labs: Lab Results 09/12/23 Range/Units 11:55 WBC 9.2 (4.5-10.0) K/mm3 RBC 4.19 L (4.2-5.4) M/mm3 Hgb 12.1 (12.0-15.0) g/dL Hct 36
[2023-09-12 12:13] LABS: Alanine Aminotransferase 14 U/L (6-35); Albumin Level 3.9 g/dL (3.5-5.1); Alkaline Phosphatase 68 U/L (38-126); Anion Gap 9 mmol/L (8-16); Aspartate Amino Transferase 19 U/L (14-36); Bilirubin,Total 0.9 mg/dL (0.2-1.3); Blood Urea Nitrogen 3 mg/dL (7-17); Carbon Dioxide 23 mmol/L (22-30); Chloride 104 mmol/L (98-107); Estimated CRCL calculation 200 ml/min; Estimated Glomerular Filt Rate > 60; Glucose 83 mg/dL (65-110); Lipase 41 U/L (23-300); Potassium 3.5 mmol/L (3.4-5.0); Sodium 136 mmol/L (137-145)
[2023-09-12 12:26] VITALS: BP 121/73; PULSE 80; RESP 15; O2SAT 100
[2023-09-12] MEDS: ACETAMINOPHEN 325 MG TABLET 650 MG PO (13:46)
[2023-09-12 14:47] VITALS: BP 133/81; PULSE 72; RESP 15; O2SAT 100
== END 2023-09-12 14:57 | disposition home or self-care (01) ==
PROVIDERS: Emergency Provider Emergency Medicine
DX: R10.13 Epigastric pain (principal); O99.342 Other mental disorders complicating pregnancy, second trimester; F41.8 Other specified anxiety disorders; Z3A.17 17 weeks gestation of pregnancy
CPT/HCPCS: 36415; 76705; 80053; 83690; 85025; 99284; A9270

== ENCOUNTER 2023-11-29 13:32 | Observation (INO) | payer OTHER, MEDICAID, SELFPAY ==
[2023-11-29] VITALS (11 sets, daily range): BP systolic 111–125; BP diastolic 69–73; PULSE 94–114; RESP 18; TEMP 36.4; O2SAT 96–99
--- NOTE | 2023-11-30 12:32 | PM.OBTRLD ---
OB - Triage/Final Diagnosis Visit Information Comments/Additional reasons for admission: I have assessed the risk for this patient, Meena Barth, and determined that she would benefit from observation care. Evaluation Vital signs: Vital Signs - 24 hr 11/29/23 14:00 11/29/23 14:03 11/29/23 14:08 Temperature Pulse Rate 100 Respiratory Rate Blood Pressure 125/73 Pulse Oximetry 98 99 Oxygen Delivery 11/29/23 14:13 11/29/23 14:15 11/29/23 14:18 Temperature Pulse Rate 98 Respiratory Rate Blood Pressure 114/70 Pulse Oximetry 98 99 Oxygen Delivery 11/29/23 14:23 11/29/23 14:28 11/29/23 14:30 Temperature Pulse Rate 102 H Respiratory Rate Blood Pressure 111/69 Pulse Oximetry 98 98 Oxygen Delivery 11/29/23 14:33 11/29/23 13:55 11/29/23 14:52 Temperature 97.6 F Pulse Rate Respiratory Rate 18 Blood Pressure Pulse Oximetry 96 Oxygen Delivery Room Air Final Diagnosis (1) Dizziness: Code(s): R42 - Dizziness and giddiness Status: Acute (2) Chest tightness: Code(s): R07.89 - Other chest pain Status: Acute
== END 2023-11-29 14:50 | disposition home or self-care (01) ==
PROVIDERS: Admitting Provider Obstetrics & Gynecology; Visit Provider Obstetrics & Gynecology
DX: O99.891 Other specified diseases and conditions complicating pregnancy (principal); R42 Dizziness and giddiness; R07.89 Other chest pain; Z3A.28 28 weeks gestation of pregnancy
CPT/HCPCS: G0378; G0379

== ENCOUNTER 2024-01-04 07:51 | Outpatient (RCR) | payer OTHER, MEDICAID, SELFPAY ==
[2024-01-04 08:51] VITALS: BP 121/74; PULSE 119
== END 2024-04-03 23:59 | disposition home or self-care (01) ==
LOC: ANHOBOP 07:51
PROVIDERS: Visit Provider Obstetrics & Gynecology
DX: O36.8130 Decreased fetal movements, third trimester, not applicable or unspecified (principal); Z3A.34 34 weeks gestation of pregnancy
CPT/HCPCS: 59025

== ENCOUNTER 2024-01-13 17:13 | Outpatient (CLI) | payer OTHER, MEDICAID, SELFPAY ==
[2024-01-13 17:39] VITALS: BP 123/81; PULSE 125
[2024-01-13 17:43] LABS: Basophils Percent Auto 0.2 % (0.2-1.2); Eosinophils Absolute Auto 0.3 K/mm3 (0-0.3); Eosinophils Percent Auto 2.4 % (0-4.4); Hematocrit 31.3 % (37.0-47.0); Hemoglobin 9.6 g/dL (12.0-15.0); Immature Granulocyte Absolute 0.22 K/mm3 (0.00-0.031); Immature Granulocyte Percent A 1.5 % (0-0.5); Lymphocytes Absolute Auto 2.73 K/mm3 (0.9-3.2); Lymphocytes Percent Auto 19.1 % (18.3-44.2); Mean Corpuscular HGB Conc 30.7 g/dl (32-36); Mean Corpuscular Hemoglobin 25.1 pg (26-34); Mean Corpuscular Volume 81.7 fl (80-100); Mean Platelet Volume 10.6 fl (7.4-10.4); Monocytes Absolute Auto 1.1 K/mm3 (0.1-0.6); Monocytes Percent Auto 7.7 % (2.6-8.5); Neutrophils Absolute Auto 9.9 K/mm3 (1.3-6.7); Neutrophils Percent Auto 69.1 % (45.5-73.1); Platelet Count Result 328 k/mm3 (150-375); Red Blood Count 3.83 M/mm3 (4.2-5.4); Red Cell Distribution Width 13.8 % (11.5-14.5); White Blood Count 14.3 K/mm3 (4.5-10.0)
[2024-01-13 17:45] VITALS: BP 126/78; PULSE 125
[2024-01-13 17:51] LABS: Appearance Urine Clear (Clear); Bacteria Urine Rare /hpf; Bilirubin Urine Negative (Negative); Blood Urine Trace (Negative); Color Urine Yellow (Yellow); Glucose Urine UA Negative (Negative); Ketones Urine Trace mg/dL (Negative); Leukocyte Esterase Ur 1+ LEU/UL (Negative); Nitrate Urine Negative (Negative); Non Pathogenic Casts 0-2; Protein Urine Trace mg/dL (Negative); RBC Urine 0-2 /hpf (0-2); Specific Grav Ur 1.022 (1.001-1.035); Squamous Epithelial Cell Urine Occasional /hpf (Few); WBC Urine 21-50 /hpf (0-3); pH Urine 5.5 (5.0-9.0)
[2024-01-13 17:58] LABS: Creatinine Urine 129.9 mg/dL; Total Protein Urine Random 6 mg/dL; Ur Ttl Prot Creatinine Ratio 0.05 mg/mg (0-0.20)
[2024-01-13 18:00] VITALS: BP 121/74; PULSE 116
[2024-01-13 18:01] VITALS: BP 121/79; PULSE 121
[2024-01-13 18:05] LABS: Add Urine Microscopic? YES
[2024-01-13 18:06] LABS: Alanine Aminotransferase 11 U/L (6-35); Albumin Level 3.6 g/dL (3.5-5.1); Alkaline Phosphatase 121 U/L (38-126); Anion Gap 6 mmol/L (8-16); Aspartate Amino Transferase 18 U/L (14-36); Bilirubin,Total 0.5 mg/dL (0.2-1.3); Blood Urea Nitrogen 6 mg/dL (7-17); Calcium 9.4 mg/dL (8.4-10.2); Carbon Dioxide 23 mmol/L (22-30); Chloride 105 mmol/L (98-107); Estimated Glomerular Filt Rate > 60; Glucose 113 mg/dL (65-110); Potassium 3.3 mmol/L (3.4-5.0); Sodium 134 mmol/L (137-145); Uric Acid 2.4 mg/dL (2.5-7.5)
[2024-01-13 18:15] VITALS: BP 122/72; PULSE 115
[2024-01-13 18:30] VITALS: BP 126/69; PULSE 123
--- NOTE | 2024-01-13 18:57 | PC.NURSE ---
Spoke with Ollie Bowens at 1839 regarding patients admission for elevated pressures at home. Discussed that BP's at facility have been within normal range. Passed NST. Discussed urine and blood lab results. Will send urine for culture. Patient states that headache is still painful, but hasn't taken any pain medication for it today. Lana Bowens would like her to try Tylenol first for pain relief. If headache worsens, please come back in for further evaluation. Will inform her to continue to take her BP's at home. Patient verbalizes understanding of discharge instructions. Left ambulatory with no distress noted.
== END 2024-01-13 18:50 | disposition home or self-care (01) ==
LOC: ANHOBOP 17:18 → ANHLDR 17:19
PROVIDERS: Advanced Practice Midwife; Visit Provider Obstetrics & Gynecology
DX: O13.9 Gestational [pregnancy-induced] hypertension without significant proteinuria, unspecified trimester (principal); Z3A.00 Weeks of gestation of pregnancy not specified
CPT/HCPCS: 36415; 59025; 80053; 82570; 84156; 84550; 85025; 87077; 87086; 87088; 87186; 99199

== ENCOUNTER 2024-01-29 15:12 | Outpatient (CLI) | payer OTHER, MEDICAID, SELFPAY ==
[2024-01-29 15:39] LABS: Hematocrit 31.7 % (37.0-47.0); Hemoglobin 9.5 g/dL (12.0-15.0); Mean Corpuscular Hemoglobin 24.1 pg (26-34); Mean Corpuscular Volume 80.5 fl (80-100); Platelet Count Result 350 k/mm3 (150-375); Red Blood Count 3.94 M/mm3 (4.2-5.4); Red Cell Distribution Width 14.8 % (11.5-14.5); White Blood Count 14.3 K/mm3 (4.5-10.0)
[2024-01-29 15:56] LABS: Alanine Aminotransferase 13 U/L (6-35); Albumin Level 3.6 g/dL (3.5-5.1); Alkaline Phosphatase 143 U/L (38-126); Anion Gap 2 mmol/L (4-12); Aspartate Amino Transferase 19 U/L (14-36); Bilirubin,Total 0.6 mg/dL (0.2-1.3); Blood Urea Nitrogen 7 mg/dL (7-17); Carbon Dioxide 26 mmol/L (22-30); Chloride 106 mmol/L (98-107); Estimated Glomerular Filt Rate > 60; Glucose 108 mg/dL (65-110); Potassium 4.2 mmol/L (3.4-5.0); Sodium 134 mmol/L (137-145); Uric Acid 2.3 mg/dL (2.5-7.5)
[2024-01-29 17:18] LABS: Iron 36 ug/dL (37-170)
[2024-01-29 17:27] LABS: Percent Iron Saturation 6 % (20-50)
[2024-01-29 17:53] LABS: Ferritin 4.41 ng/mL (6.24-137)
== END 2024-01-29 15:13 | disposition home or self-care (01) ==
LOC: ANHLAB 15:14
PROVIDERS: Visit Provider Obstetrics & Gynecology
DX: R42 Dizziness and giddiness (principal)
CPT/HCPCS: 36415; 80053; 82728; 83540; 83550; 84550; 85027

== ENCOUNTER 2024-02-01 19:31 | Outpatient (CLI) | payer OTHER, MEDICAID, SELFPAY | END 2024-02-01 19:32 | disposition home or self-care (01) | LOC: ANHOBOP 20:19 | PROVIDERS: Visit Provider Obstetrics & Gynecology | DX: O42.90 Premature rupture of membranes, unspecified as to length of time between rupture and onset of labor, unspecified weeks of gestation (principal); Z3A.00 Weeks of gestation of pregnancy not specified | CPT/HCPCS: 59025; 96365; 96375; A9270; J1200; J1756 ==

== ENCOUNTER 2024-02-08 04:57 | Inpatient (IN) | payer OTHER, MEDICAID, SELFPAY ==
[2024-02-08] VITALS (97 sets, daily range): BP systolic 84–147; BP diastolic 39–106; PULSE 75–142; RESP 18; TEMP 36.1–37.2; O2SAT 97–100; BMI 35.6
--- NOTE | 2024-02-08 05:29 | LDADM ---
This patient, Meena Barth, was admitted to Labor/Delivery/Recovery 107 on 02/08/24 at 04:57. Plans for labor, pain management and were discussed with patient. Patient/family oriented to hospital policies and general routines including ID bracelet, bed and alarms, visiting hours, pain management, procedures, bathroom and other care routines, personal items, smoking policy, room service/diet and guest tray routines, security routines, and visiting hours. Patient/Family are encouraged to report perceived risks to care and to ask questions if they do not understand what they are told or what they should do. See OBIX for further documentation.
[2024-02-08] MEDS: miSOPROStol 25 MCG TABLET 50 MCG PO (05:47)
[2024-02-08 05:50] LABS: Basophils Absolute Auto 0.1 K/mm3 (0.0-0.1); Basophils Percent Auto 0.6 % (0.2-1.2); Eosinophils Absolute Auto 0.4 K/mm3 (0-0.3); Eosinophils Percent Auto 2.6 % (0-4.4); Hematocrit 32.4 % (37.0-47.0); Hemoglobin 9.7 g/dL (12.0-15.0); Immature Granulocyte Absolute 0.69 K/mm3 (0.00-0.031); Immature Granulocyte Percent A 4.4 % (0-0.5); Lymphocytes Absolute Auto 3.25 K/mm3 (0.9-3.2); Lymphocytes Percent Auto 20.5 % (18.3-44.2); Mean Corpuscular HGB Conc 29.9 g/dl (32-36); Mean Corpuscular Hemoglobin 24.7 pg (26-34); Mean Corpuscular Volume 82.4 fl (80-100); Monocytes Absolute Auto 1.3 K/mm3 (0.1-0.6); Monocytes Percent Auto 8.1 % (2.6-8.5); Neutrophils Absolute Auto 10.1 K/mm3 (1.3-6.7); Neutrophils Percent Auto 63.8 % (45.5-73.1); Nucleated Red Blood Cells Perc 0.1 % (0.0-0.2); Platelet Count Result 287 k/mm3 (150-375); Red Blood Count 3.93 M/mm3 (4.2-5.4); White Blood Count 15.9 K/mm3 (4.5-10.0)
[2024-02-08 06:19] LABS: Anisocytosis 1+; Hypochromasia 1+; Platelet Estimate Adequate (Adequate); Schistocytes None Seen
--- NOTE | 2024-02-08 07:35 | WPDOBADMIT ---
Obstetrics - Admit Note Admission Note: record reviewed. No pertinent additions to the history and/or any subsequent changes in the physical findings that are not consistent with the expected course of the were found. Additions to the history and/or subsequent changes in the physical findings follow. IOL, SVE /-2 arom moderate amount of clear, odorless fluid
--- NOTE | 2024-02-08 08:13 | WPDANESEPP ---
Anes - Eval Pre Procedure Procedure: labor epidural Date/Time: 02/08/24 08:13 Preop Diagnosis: labor pain Pre Op Diagnosis: IOL Patient Data Age: 23 Gender: F Height: 1.68 m Weight: 100 kg Last Vital Signs Temp 36.6 C 02/08/24 07:00 Pulse 100 02/08/24 08:01 BP 126/66 02/08/24 08:01 O2 Del Method Room Air 02/08/24 05:28 Allergies Allergy/AdvReac Type Severity Reaction Status Date / Time No Known Allergies Allergy Verified 02/08/24 05:35 Home Medications Medication Instructions Recorded Confirmed Type aspirin 81 mg tablet 81 mg PO DAILY 01/29/24 02/08/24 History ferrous sulfate 325 mg (65 mg 65 mg PO DAILY 01/29/24 02/05/24 History iron) tablet (Iron (ferrous sulfate)) pantoprazole 20 mg tablet,delayed 20 mg PO DAILY 01/29/24 02/08/24 History release vits no.126-ferrous fum 1 tablet PO DAILY 01/29/24 02/08/24 History 28 mg iron-folic acid 800 mcg tablet (Classic ) Laboratory Tests 02/08/24 05:05 WBC 15.9 H K/mm3 (4.5-10.0) RBC 3.93 L M/mm3 (4.2-5.4) Hgb 9.7 L g/dL (12.0-15.0) Hct 32.4 L % (37.0-47.0) MCV 82.4 fl (80-100) MCH 24.7 L pg (26-34) MCHC 29.9 L g/dl (32-36) RDW 19.0 H % (11.5-14.5) Plt Count 287 k/mm3 (150-375) MPV 11.0 H fl (7.4-10.4) Immature Gran % (Auto) 4.4 H % (0-0.5) Neut % (Auto) 63.8 % (45.5-73.1) Lymph % (Auto) 20.5 % (18.3-44.2) [place] % (Auto) 8.1 % (2.6-8.5) Eos % (Auto) 2.6 % (0-4.4) Baso % (Auto) 0.6 % (0.2-1.2) Lymph # (Auto) 3.25 H K/mm3 (0.9-3.2) [place] # (Auto) 1.3 H K/mm3 (0.1-0.6) Eos # (Auto) 0.4 H K/mm3 (0-0.3) Baso # (Auto) 0.1 K/mm3 (0.0-0.1) Abs Immat Gran (auto) 0.69 H K/mm3 (0.00-0.031) Absolute Neuts (auto) 10.1 H K/mm3 (1.3-6.7) Absolute Nucleated RBC 0.020 H K/mm3 (0.0-0.012) Nucleated RBC % 0.1 % (0.0-0.2) Platelet Estimate Adequate (Adequate) Hypochromasia 1+ Anisocytosis 1+ Schistocytes None seen RPR Pending Blood Type A Positive Antibody Screen Negative Patient hx anesthesia problems: none Family hx anesthesia problems: none Results Review: All pre-operative results and documents have been reviewed as part of the pre-operative evaluation. [facility] Past Medical History Medical History Depression Depression with anxiety Surgical History Surgical History History of tonsillectomy Family History Family History Other Diabetes mellitus Family history of alcoholism Family history of lung disease Family history of mental disorder Family history of seizure disorder Social History Social History (Updated 07/18/22 @ 13:31 by Maribell Lino) Social History: Smoking status: Never smoker Second hand tobacco smoke exposure: No Alcohol intake: never Substance use: never Substance use type: does not use Do You Feel Safe in your Home?: Yes Lack of Transportation: No Lack of Food: Never True Current Housing: I Have Housing Concerned About Future Housing: No Difficulty Paying Gas/Electric Bills: No Difficulty Paying for Meds: No Currently Unemployed: No Education: High School Diploma/GED Difficulty w/ Childcare or Family Care: No Living arrangements: with family Occupation/Education: occupation Gender identity (if verbalized by the patient): Female Sexual Orientation (if Verbalized by the Patient): Straight or Heterosexual Spiritual care concerns: No Exam Day of Procedure 02/08/24 08:13
[2024-02-08] MEDS: LACTATED RINGERS 1,000 ML 125 ML IV CONT ×2 (10:20→13:45)
[2024-02-08] MEDS: OXYTOCIN 30 UNITS/NS 500 ML 30 UNITS/500 ML BAG IV CONT (10:20)
[2024-02-08 12:23] LABS: Rapid Plasma Reagin Non-Reactive (NonReactive)
[2024-02-08] MEDS: fentaNYL CITRATE INJ (*CRX) 100 MCG/2 ML VIAL 50 MCG IV PUSH (13:18)
[2024-02-08] MEDS: SODIUM CHLORIDE 0.9% IV 300 ML 600 ML I-UTERINE (16:30)
--- NOTE | 2024-02-08 16:59 | PM.OBPRVD ---
OB - Vaginal Delivery Note Procedure Delivery date: 02/08/24 Induction method: AROM and Per Pitocin Protocol Delivery monitor: External FHT and Internal Uterine Route of delivery: Episiotomy description: None Laceration Description: None Specimen: No Quantitative Blood Loss (ml): 100 Anesthesia type: Epidural Disposition: Floor Complications: No immediate complications Baby Date of : 02/08/24 Time of : 16:51 Weeks of gestation at delivery: 39 gender: Female presentation: vertex position: Left Occiput Anterior Placenta delivery description: Spontaneous Cord Vessel Description: 3 Vessels and Delayed Cord Clamping score one minute: 7 score five minutes: 9 Narrative: mother and baby skin to skin in stable condition
[2024-02-08] MEDS: OXYTOCIN 30 UNITS/NS 500 ML 30 UNITS/500 ML BAG 125 UNITS IV CONT (17:21)
[2024-02-08] MEDS: BENZOCAINE 20% AER SPR (*SP) 56 GM CAN 1 SPRAY TOPICAL (19:30)
[2024-02-08] MEDS: WITCH HAZEL 40 PADS 1 PAD TOPICAL (19:30)
[2024-02-09] MEDS: IBUPROFEN 600 MG TABLET PO ×2 (02:25→09:25)
[2024-02-09] MEDS: ACETAMINOPHEN 325 MG TABLET 650 MG PO (02:25)
[2024-02-09 04:26] VITALS: BP 129/69; PULSE 73; RESP 18; TEMP 36.9; O2SAT 100
[2024-02-09 05:56] LABS: Hematocrit 32.8 % (37.0-47.0); Hemoglobin 9.7 g/dL (12.0-15.0)
--- NOTE | 2024-02-09 06:04 | PM.OBPNVD ---
OB - PN: Subj Subjective Date/time seen: 02/09/24 06:04 Patient comments: no complaints, pain well controlled, incisional pain, tolerating diet and flatus present OB - PN: Obj Data Labs 02/08/24 05:05 Labs: Laboratory Results - last 24 hr 02/08/24 05:05 WBC 15.9 H RBC 3.93 L Hgb 9.7 L Hct 32.4 L MCV 82.4 MCH 24.7 L MCHC 29.9 L RDW 19.0 H Plt Count 287 MPV 11.0 H Immature Gran % (Auto) 4.4 H Neut % (Auto) 63.8 Lymph % (Auto) 20.5 [place] % (Auto) 8.1 Eos % (Auto) 2.6 Baso % (Auto) 0.6 Lymph # (Auto) 3.25 H [place] # (Auto) 1.3 H Eos # (Auto) 0.4 H Baso # (Auto) 0.1 Abs Immat Gran (auto) 0.69 H Absolute Neuts (auto) 10.1 H Absolute Nucleated RBC 0.020 H Nucleated RBC % 0.1 Platelet Estimate Adequate Hypochromasia 1+ Anisocytosis 1+ Schistocytes None seen RPR Non-reactive Blood Type A Positive Antibody Screen Negative OB - PN A/P Plan day: 1 Plan: routine care Comments: No problems, routine care Time Spent With Patient Time: Total time spent is greater than 50% in coordination of care (as documented) at patient's floor/unit and/or counseling patient: Exam Const: General: comfortable, no acute distress and alert Resp: Effort & Inspection: normal respiratory effort Auscultation: no crackles, no rales and no rhonchi Cardio: Rate: regular rate Heart sounds: no click, no murmurs and no rubs GI: Inspection: non-distended GI Palp: No Tenderness to palpation present (GI) Auscultation: normal bowel sounds Other: Incision - CDI Extrem: General: normal to inspection, no pedal edema and no calf tenderness
[2024-02-09] MEDS: DOCUSATE SODIUM 100 MG CAPSULE PO (09:24)
[2024-02-09] MEDS: POLYSACCHARIDE IRON COMPLEX 150 MG CAPSULE PO ×2 (09:24→16:41)
[2024-02-09] MEDS: MULTIVIT/MIN/PREN/FOL AC/IRON TABLET 1 TAB PO (09:24)
[2024-02-09 09:25] VITALS: BP 121/69; PULSE 90; RESP 18; TEMP 36.5; O2SAT 99
[2024-02-09 12:45] VITALS: BP 120/76; PULSE 96; RESP 18; TEMP 36.3; O2SAT 98
--- NOTE | 2024-02-09 15:33 | WPDANLDPN2 ---
Anes-Prog Note L&D Date/Time: 02/09/24 15:33 Comfortable throughout: labor and delivery Neuraxial method: epidural Epidural/Spinal procedure site: clean & non-tender Neuro status: Neuro function grossly intact. Cardiovascular status: normal Respiratory status: normal Airway patency: baseline Mental status: baseline Post-Op hydration status: normal Vital Signs: Last Vital Signs Temp 97.3 F L 02/09/24 12:45 Pulse 96 02/09/24 12:45 Resp 18 02/09/24 12:45 BP 120/76 02/09/24 12:45 Pulse Ox 98 02/09/24 12:45 O2 Del Method Room Air 02/09/24 09:25 Pain score (VAS): 0 I/O: Intake & Output 02/08/24 02/09/24 02/09/24 23:59 07:59 15:59 Intake Total 977.1 Output Total 100 Balance 877.1 Post-procedural complaints: none Patient feedback: Patient satisfied with anesthetic care.
--- NOTE | 2024-02-11 17:09 | P.DS_ITS ---
DS: Admitting Diagnosis Discharge Date 02/09/24 Admitting Diagnosis IOL OB - DS: Summary OB Procedures : None OB Procedures Intrapartum: Spontaneous Vag Delivery OB Procedures: : None Peripartum Data Laceration Description: None Episiotomy description: None Time Spent with Patient Time attestation: Total time spent providing and/or coordinating discharge services: Discharge Plan Discharge Discharging Clinician: Amarjit Goins Patient Disposition: Home, Self-Care Activity: pelvic rest Diet: regular Discharge Instructions: Education: Mom and Baby Guide Given to: Mother Follow-Up: Call your delivering provider's office for an appointment to be seen in: 6 Weeks Mom and baby should come to the [facility] for the follow-up appointment. Appointment Date/Time: Sunday, February 11, 2024 at 2:30 pm What to expect at your follow-up visit: Physical Assessment Call [phone] if you are unable to keep your appointment time. BREAST CARE: * Wear a snug supportive bra. * For engorgement discomfort: Breast Feeding: * Apply warm moist washcloths * Express milk as needed to relieve engorgement * Wear loose clothing * For sore nipples: * Identify correct latch-on * Apply warm moist washcloths before and after nursing * Air dry nipples after nursing * May apply Lansinoh cream to nipples PERINEAL CARE: * Until bleeding stops, use your ilya bottle after urinating * Change your pad frequently throughout the day * You may take sitz baths several times a day (fill your bathtub with warm water and soak for 20 minutes.) Do NOT bathe in the water * No tub baths until seen by your physician - You may shower ACTIVITY: * Rest as much as possible. * Do not exercise or lift anything heavier than your baby (such as laundry or other children.) * Avoid stairs or driving as much as possible. * Do not put anything into the vagina. No douching, tampons, or sexual activity until seen by physician. NOTIFY PHYSICIAN IF YOU HAVE ANY QUESTIONS OR IF ANY OF THE FOLLOWING SYMPTOMS OCCUR: * If your episiotomy or incision becomes red, swollen, or more painful than what you have experienced in the hospital. * If your vaginal bleeding becomes foul smelling. * If your vaginal bleeding becomes more heavy than a period or if your bleeding changes from pink to bright red. However, you may pass an occasional walnut- sized clot once or twice for the first week . * If you experience a sharp, shooting pain in you calves. * If you discover a hard, reddened area on your breast or if you experience flu- like symptoms. DIET: * Eat regular, well-balanced meals. * Drink plenty of fluids daily. If , drink to thirst. Follow-up/Referrals: Amarjit Goins MD [Physician] - Discharge Medications: Continued pantoprazole 20 mg tablet,delayed release (DR/EC) 20 mg PO DAILY ferrous sulfate [Iron (ferrous sulfate)] 325 mg (65 mg iron) Tablet 65 mg PO DAILY Classic 28 mg iron- 800 mcg Tablet 1 tablet PO DAILY Discontinued aspirin 81 mg Tablet 81 mg PO DAILY Date of admission: 02/08/24 04:57 Primary Care Provider: Jennifer Downing Admitting Provider: Anthony Horton Attending physician on admission: Anthony Horton Condition: Stable
--- NOTE | 2024-02-12 06:21 | PM.OBDSVD ---
DS: Admitting Diagnosis Discharge Date 02/09/24 Admitting Diagnosis IOL DS: Discharge Diagnosis Discharge Diagnosis (1) Vaginal delivery: Code(s): O80 - Encounter for full-term uncomplicated delivery Status: Acute OB - DS: Summary OB Procedures : None OB Procedures Intrapartum: Spontaneous Vag Delivery OB Procedures: : None Peripartum Data Laceration Description: None Episiotomy description: None Time Spent with Patient Time attestation: Total time spent providing and/or coordinating discharge services: Discharge Plan Discharge Discharging Clinician: Amarjit Goins Patient Disposition: Home, Self-Care Activity: pelvic rest Diet: regular Discharge Instructions: Education: Mom and Baby Guide Given to: Mother Follow-Up: Call your delivering provider's office for an appointment to be seen in: 6 Weeks Mom and baby [facility] for the follow-up appointment. Appointment Date/Time: Sunday, February 11, 2024 at 2:30 pm What to expect at your follow-up visit: Physical Assessment Call [phone] if you are unable to keep your appointment time. BREAST CARE: * Wear a snug supportive bra. * For engorgement discomfort: Breast Feeding: * Apply warm moist washcloths * Express milk as needed to relieve engorgement * Wear loose clothing * For sore nipples: * Identify correct latch-on * Apply warm moist washcloths before and after nursing * Air dry nipples after nursing * May apply Lansinoh cream to nipples PERINEAL CARE: * Until bleeding stops, use your ilya bottle after urinating * Change your pad frequently throughout the day * You may take sitz baths several times a day (fill your bathtub with warm water and soak for 20 minutes.) Do NOT bathe in the water * No tub baths until seen by your physician - You may shower ACTIVITY: * Rest as much as possible. * Do not exercise or lift anything heavier than your baby (such as laundry or other children.) * Avoid stairs or driving as much as possible. * Do not put anything into the vagina. No douching, tampons, or sexual activity until seen by physician. NOTIFY PHYSICIAN IF YOU HAVE ANY QUESTIONS OR IF ANY OF THE FOLLOWING SYMPTOMS OCCUR: * If your episiotomy or incision becomes red, swollen, or more painful than what you have experienced in the hospital. * If your vaginal bleeding becomes foul smelling. * If your vaginal bleeding becomes more heavy than a period or if your bleeding changes from pink to bright red. However, you may pass an occasional walnut-sized clot once or twice for the first week . * If you experience a sharp, shooting pain in you calves. * If you discover a hard, reddened area on your breast or if you experience flu-like symptoms. DIET: * Eat regular, well-balanced meals. * Drink plenty of fluids daily. If , drink to thirst. Follow-up/Referrals: Amarjit Goins MD [Physician] - Discharge Medications: Continued pantoprazole 20 mg tablet,delayed release (DR/EC) 20 mg PO DAILY ferrous sulfate [Iron (ferrous sulfate)] 325 mg (65 mg iron) Tablet 65 mg PO DAILY Classic 28 mg iron- 800 mcg Tablet 1 tablet PO DAILY Discontinued aspirin 81 mg Tablet 81 mg PO DAILY Date of admission: 02/08/24 04:57 Primary Care Provider: Jennifer Downing Admitting Provider: Anthony Horton Attending physician on admission: Anthony Horton Condition: Stable
== END 2024-02-09 19:00 | disposition home or self-care (01) | DRG 807 ==
LOC: ANHOB2 02-09 18:01 → ANHLDR 02-12 08:08 → ANHOB2 02-12 08:08
PROVIDERS: Admitting Provider Obstetrics & Gynecology; Referring Provider Advanced Practice Midwife; Visit Provider Obstetrics & Gynecology
DX: O13.4 Gestational [pregnancy-induced] hypertension without significant proteinuria, complicating childbirth (principal); Z37.0 Single live birth; Z3A.39 39 weeks gestation of pregnancy
CPT/HCPCS: 36415; 85014; 85018; 85025; 86592; 86850; 86900; 86901; A9270; J2590; J2795; J3010; J7030; J7120